=== PATIENT | male | born 1980 | race Caucasian/White ===

== ENCOUNTER 2022-11-26 00:59 | Emergency (ER) | payer MEDICAID, MEDICARE ==
[~2022-11-26] VITALS: Ht 165.1 cm; Wt 72.7 kg
[~2022-11-26 00:59] MED LIST: IBUP-24 PO
[2022-11-26] MEDS ORDERED: normal saline 1000ML IV soln IVB ONE (01:40)
--- NOTE | 2022-11-26 02:14 | NUR ---
Dr Mcconnell stated to not start an IV and to cancel the NS
[2022-11-26 02:29] LABS: BASOPHILS # (AUTO) 0.2 X10'3 (0-0.2); BASOPHILS % (AUTO) 1.2 % (0-1); EOSINOPHILS # (AUTO) 0.4 X10'3 (0-0.9); EOSINOPHILS % (AUTO) 2.5 % (0-6); HEMATOCRIT 51.5 % (42.0-52.0); HEMOGLOBIN 17.2 g/dl (14.0-17.9); LYMPHOCYTES # (AUTO) 2.5 X10'3 (1.1-4.8); LYMPHOCYTES % (AUTO) 17.2 % (21-51); MEAN CORPUSCULAR HEMOGLOBIN 31.6 PG (27.0-31.0); MEAN CORPUSCULAR HGB CONC 33.4 g/dL (33.0-36.5); MEAN CORPUSCULAR VOLUME 94.7 FL (78-98); MEAN PLATELET VOLUME 6.7 FL (7.4-10.4); MONOCYTES # (AUTO) 1.3 X10'3 (0-0.9); NEUTROPHILS # (AUTO) 10.1 X10'3 (1.8-7.7); NEUTROPHILS % (AUTO) 70.1 % (42-75); PLATELET COUNT 425 X10'3 (140-440); RED BLOOD COUNT 5.44 X10'6 (4.70-6.10); RED CELL DISTRIBUTION WIDTH 14.6 % (11.5-14.5); WHITE BLOOD COUNT 14.3 X10'3 (4.5-11.0)
[2022-11-26 02:42] LABS: ALANINE AMINOTRANSFERASE 19 U/L (12-78); ALBUMIN 3.6 G/DL (3.4-5.0); ALBUMIN/GLOBULIN RATIO 0.9 (1.1-1.5); ALKALINE PHOSPHATASE 102 IU/L (46-116); ANION GAP 12 (8-16); ASPARTATE AMINO TRANSFERASE 31 U/L (10-37); BILIRUBIN,TOTAL 0.3 MG/DL (0.1-1.0); BLOOD UREA NITROGEN 9 MG/DL (7-18); BUN/CREATININE RATIO 8.2 (10.0-20.0); CALCIUM 9.5 MG/DL (8.5-10.1); CHLORIDE 102 MMOL/L (99-107); ETHANOL 212 MG/DL (<10); GLUCOSE 96 MG/DL (70-104); POTASSIUM 3.1 MMOL/L (3.5-5.1); SODIUM 137 MMOL/L (135-145); TOTAL CARBON DIOXIDE 23.3 MMOL/L (24-32); TOTAL PROTEIN 7.7 G/DL (6.4-8.2); eCRCL 77 ML/MIN; eGFR 74 ML/MIN
[2022-11-26 03:12] VITALS: BP 124/93; PULSE 79; RESP 16; TEMP 97.5; O2SAT 97
[2022-11-26] MEDS ORDERED: potassium Cl 20 mEq SR tablet PO STA (05:40)
== END 2022-11-26 06:00 | disposition home or self-care (01) ==
LOC: ER 01:00
DX: R40.4 Transient alteration of awareness (principal); G89.29 Other chronic pain; F12.90 Cannabis use, unspecified, uncomplicated; Z72.89 Other problems related to lifestyle; Z88.8 Allergy status to other drugs, medicaments and biological substances; Z79.899 Other long term (current) drug therapy
CPT/HCPCS: 36415; 70450; 71045; 72125; 73060; 73110; 80053; 80320; 85025; 99284; J7030; 99285